=== PATIENT | male | born 1970 | race Caucasian/White ===

== ENCOUNTER 2024-02-26 23:12 | Emergency (ER) | payer OTHER ==
[~2024-02-26] VITALS: Ht 177.8 cm; Wt 85.0 kg
[~2024-02-26 23:12] MED LIST: WARF4TAB71 MT
[2024-02-26 23:22] VITALS: O2SAT 98
[2024-02-26 23:40] LABS: CHLORIDE 106 mEq/L (98-107); POTASSIUM 3.8 mEq/L (3.5-5.1); SODIUM 140 mEq/L (136-145)
[2024-02-26 23:41] LABS: CALCIUM 9.9 mg/dL (8.7-10.4); CARBON DIOXIDE 30 mEq/L (21-32)
[2024-02-26 23:46] LABS: BASOPHILS % 1.1 % (0.0-2.0); EOSINOPHILS % 10.4 % (0.0-5.0); GLUCOSE 88 mg/dL (70-105); HEMATOCRIT. 36.2 % (42.0-52.0); LYMPHOCYTES % 27.1 % (20.0-50.0); MEAN CORPUSCULAR HEMOGLOBIN 29.8 pg (28.0-32.0); MEAN CORPUSCULAR HGB CONC 33.1 g/dL (31.0-37.0); MEAN PLATELET VOLUME 9.1 fl (7.4-10.4); MONOCYTES % 12.6 % (2.0-8.0); NEUTROPHILS % 48.8 % (40.0-76.0); PLATELET 152 x1000/uL (130-400); RED BLOOD CELL COUNT 4.02 mill/uL (4.7-6.1); RED CELL DISTRIBUTION WIDTH 14.7 % (11.6-14.6); UREA NITROGEN BLOOD 13 mg/dL (9-23); WHITE BLOOD COUNT 7.3 x1000/uL (4.5-11.0)
[2024-02-26 23:48] LABS: ACETAMINOPHEN < 2 ug/mL (10-30)
[2024-02-26 23:50] LABS: ETHANOL BLOOD < 10 mg/dL (<10)
[2024-02-27] MEDS: TETANUS, DIPHTHERIA, PERTUSSIS VAC/PF 0.5ML (>10YR OLD) IM ONE (00:15)
[2024-02-27 05:42] LABS: *AMPHETAMINES SCREEN URINE NEGATIVE (NEGATIVE); *BARBITURATES SCREEN URINE NEGATIVE (NEGATIVE); *BENZODIAZEPINES SCREEN URINE NEGATIVE (NEGATIVE); *COCAINE SCREEN URINE NEGATIVE (NEGATIVE); CANNABINOID URINE SCREEN PRESUMPTIVE POSITIVE (NEGATIVE); ECSTASY MDMA SCREEN URINE NEGATIVE (NEGATIVE); METHADONE URINE SCREEN NEGATIVE (NEGATIVE); OPIATES URINE SCREEN NEGATIVE (NEGATIVE); PHENCYCLIDINE URINE SCREEN NEGATIVE (NEGATIVE)
[2024-02-27 06:38] LABS: CLARITY URINE CLEAR (CLEAR); COLOR URINE YELLOW (YELLOW); GLUCOSE URINE NEGATIVE (NEGATIVE); KETONES URINE TRACE (NEGATIVE); LEUKOCYTE ESTERASE URINE NEGATIVE (NEGATIVE); NITRITE URINE NEGATIVE (NEGATIVE); OCCULT BLOOD URINE 2+ (NEGATIVE); PH URINE 5.5 (4.5-8.0); PROTEIN URINE NEGATIVE (NEGATIVE); SPECIFIC GRAVITY URINE 1.017 (1.005-1.030)
[2024-02-27 07:31] LABS: WBC URINE 0-2 /hpf (0-2)
[2024-02-27 07:32] LABS: BACTERIA URINE NONE SEEN; RBC URINE 0-2 /hpf (0-2); SQUAMOUS EPITHELIAL CELL URINE NONE SEEN /lpf (RARE/1+)
[2024-02-27] MEDS ORDERED: QUINIDINE SULFATE 200 MG PO SCH (09:00)
[2024-02-27] MEDS: QUETIAPINE FUMARATE 25MG TABLET PO SCH (10:00)
[2024-02-27 16:21] LABS: PROTHROMBIN TIME 40.1 sec (9.6-11.0)
[2024-02-28 06:24] LABS: INR 2.1
[2024-02-28] MEDS: PERMETHRIN 5% CREAM 60GM TOP ONE (17:11)
[2024-02-29 22:09] VITALS: BP 136/79; PULSE 69; RESP 18; TEMP 97.9
== END 2024-02-29 22:39 ==
LOC: ER 23:12
DX: R45.851 Suicidal ideations (principal); J45.909 Unspecified asthma, uncomplicated; E11.9 Type 2 diabetes mellitus without complications; I10 Essential (primary) hypertension; F19.90 Other psychoactive substance use, unspecified, uncomplicated; Z88.8 Allergy status to other drugs, medicaments and biological substances; Z20.822 Contact with and (suspected) exposure to COVID-19
CPT/HCPCS: 80305; 80048; 81003; 80307; 80329; 80320; 85025; 85610; 36415; 99285; 87426; 90715; 90471; Z7610 ×2; G0480